=== PATIENT | female | born 1985 | race Caucasian/White ===

== ENCOUNTER → 2020-06-17 | Outpatient (CLI) | payer OTHER ==
--- NOTE | 2020-06-17 15:17 | KCIC ---
Bilateral diagnostic digital mammograms with 3-D tomosynthesis: Reason for examination: Right breast lump. Baseline exam. Bilateral mammograms in CC and oblique projections were obtained with 2-D imaging and 3-D tomosynthes is imaging on a Siemens Inspiration unit and reviewed on the workstation. Interpretation was made wit h the benefit of CAD. The skin and nipples show no abnormalities. No abnormal axillary lymph nodes are seen. The breast par enchyma shows scattered fatty and fibroglandular density. (Breast density: Category B.) There is a 3. 3 x 2.2 x 2 cm circumscribed nodule in the subareolar position of the right breast corresponding to t he area of clinical concern. There are no other dominant masses, suspicious calcifications or archite ctural distortion. No abnormal calcifications are seen. Impression: 3.3 x 2.2 x 2 cm circumscribed nodule in the subareolar position of the right breast. Ultrasound to mauricio baez. BI-RADS Category 0: Incomplete. Needs additional imaging evaluation. Right breast ultrasound: Ultrasound examination of the right breast and axilla was performed. In the retroareolar 7:00 position corresponding to the area of clinical concern, there is a 3 x 1.5 x 2 cm solid circumscribed nodule which shows some vascular flow. Further evaluation with ultrasound-g uided biopsy is recommended. No other nodules are seen. No abnormal appearing lymph nodes are seen in the right axilla. IMPRESSION: 3 x 1.5 x 2 cm solid nodule with vascular flow at the retroareolar 7:00 position corresponding to the area of mammographic concern. Recommend ultrasound-guided biopsy. BI-RADS Category 4: Suspicious. These findings have been discussed with the patient and the patient's nurse practitioner Jackelyn arevalo, was notified about these findings at 1515 on 06/17/2020.. "Our facility is accredited by the [employer] Mammography [employer]." This patient's information has been entered into a reminder system for the patient to be notified wit h the results of her examination and a target date for the next mammogram. Electronically signed by: Cherry Pierre MD (06/17/2020 3:15 PM) [id number]
== END ==
LOC: KCIC MAMMO 12:21
PROVIDERS: ATTEND Nurse Practitioner Obstetrics & Gynecology
DX: R92.2 Inconclusive mammogram (principal); N63.13 Unspecified lump in the right breast, lower outer quadrant
CPT/HCPCS: 76641; 77066; G0279; 77062

== ENCOUNTER → 2020-06-19 | Outpatient (CLI) | payer OTHER ==
[~2020-06-19] MED LIST: LIDOCAINE 1% Multi-Dose 20 ML VIAL. ONE
--- NOTE | 2020-06-19 13:48 | RAD ---
EXAM: Sonographic guided right breast biopsy; right breast biopsy clip placement; right breast postbi opsy mammogram. HISTORY: 35-year-old female presents for sonographic guided biopsy of a palpable mass within the righ t breast demonstrated on a mammogram and sonogram performed 06/17/2020. TECHNIQUE: The risks of the procedure discussed with the patient and written and verbal chest was obt ained. A timeout was performed.. Sonographic imaging of the right breast was performed and the lesion of concern at the 7:00 retroareolar measuring 3.0 cm was identified. The skin in this location was s terilely prepped, draped and infiltrated with 1 percent lidocaine. Multiple coarse and pelvis were ob tained with sonographic guidance and a biopsy clip was advanced to the margin of the mass. Minimal co mpression was maintained until hemostasis achieved. A sterile measures placed. A post fossa mammogram demonstrates the biopsy clip in expected position. The patient tolerated the procedure without compl ication. IMPRESSION: Sonographic guided biopsy of a 3.0 cm mass within the 7:00 retroareolar position of the r ight breast and biopsy clip placement. An addendum to this report be submitted when pathology results are available. Electronically signed by: Cassy Javier MD (06/19/2020 1:45 PM) [id number]
== END | disposition home or self-care (01) ==
LOC: US 13:50
PROVIDERS: ATTEND Nurse Practitioner Obstetrics & Gynecology
DX: N63.13 Unspecified lump in the right breast, lower outer quadrant (principal); N64.59 Other signs and symptoms in breast
CPT/HCPCS: 19083; 77065; A4648